=== PATIENT | female | born 2000 | race Caucasian/White ===

== ENCOUNTER 2025-01-23 15:30 | Outpatient (CLI) | payer BC, SELFPAY ==
[2025-01-23 16:06] LABS: Hemoglobin* 13.6 gm/dL (12.0-16.0)
[2025-01-23 17:43] LABS: Ferritin* 18.4 ng/mL (6.24-137.0)
== END 2025-01-23 15:31 | disposition home or self-care (01) ==
PROVIDERS: Visit Provider Family Medicine
DX: R53.83 Other fatigue (principal)
CPT/HCPCS: 36415; 82728; 85018